=== PATIENT | female | born 1965 | race Caucasian/White ===

== ENCOUNTER 2017-03-11 17:30 | Emergency (ER) | payer OTHER ==
[~2017-03-11] VITALS: Ht 162.6 cm; Wt 102.1 kg
[~2017-03-11 17:30] MED LIST: ACETAMINOPHEN-1 EAC1 PO; DAY TIME LIQUI1 EAC1 PO; IBUPROFEN600 MG PO
[2017-03-11] MEDS ORDERED: CLINDAMYCIN HC300 MG PO (18:32)
== END 2017-03-11 18:51 | disposition home or self-care (01) ==
LOC: ED 17:30
DX: K04.7 Periapical abscess without sinus (principal); F17.200 Nicotine dependence, unspecified, uncomplicated; Z98.51 Tubal ligation status
CPT/HCPCS: 99282

== ENCOUNTER 2018-09-06 17:33 | Emergency (ER) | payer OTHER ==
[~2018-09-06] VITALS: Ht 162.6 cm; Wt 102.1 kg
[~2018-09-06 17:33] MED LIST changes: +CLINDAMYCIN HC300 MG PO
[2018-09-06] MEDS ORDERED: ONDANSETRON ODT8 MG PO (18:53)
== END 2018-09-06 19:03 | disposition home or self-care (01) ==
LOC: ED 17:33
DX: J10.1 Influenza due to other identified influenza virus with other respiratory manifestations (principal); F17.200 Nicotine dependence, unspecified, uncomplicated
CPT/HCPCS: 81001; 87077; 87088; 87186; 87502; 99283

== ENCOUNTER 2020-02-13 21:55 | Emergency (ER) | payer OTHER ==
[~2020-02-13] VITALS: Ht 162.6 cm; Wt 99.8 kg
[~2020-02-13 21:55] MED LIST changes: +ONDANSETRON ODT8 MG PO
[2020-02-13] MEDS ORDERED: ULTRAM50 MG PO (23:00)
== END 2020-02-13 23:26 | disposition home or self-care (01) ==
LOC: ED 21:55
DX: S46.911A Strain of unspecified muscle, fascia and tendon at shoulder and upper arm level, right arm, initial encounter (principal); F17.200 Nicotine dependence, unspecified, uncomplicated; Z88.5 Allergy status to narcotic agent; W19.XXXA Unspecified fall, initial encounter
CPT/HCPCS: 73030; 99283-25

== ENCOUNTER 2021-02-25 14:08 | Emergency (ER) | payer OTHER ==
[~2021-02-25] VITALS: Ht 162.6 cm; Wt 94.2 kg
[~2021-02-25 14:08] MED LIST changes: +ULTRAM50 MG PO
[2021-02-25] MEDS ORDERED: DOXYCYCLINE HY100 MG PO (15:37)
[2021-02-25] MEDS ORDERED: FLAGYL500 MG PO (15:50)
== END 2021-02-25 16:15 | disposition home or self-care (01) ==
LOC: ED 14:08
DX: A64 Unspecified sexually transmitted disease (principal); F17.200 Nicotine dependence, unspecified, uncomplicated; Z88.5 Allergy status to narcotic agent; Z88.8 Allergy status to other drugs, medicaments and biological substances
CPT/HCPCS: 81001; 96372; 99283; J0696

== ENCOUNTER 2023-03-08 15:29 | Emergency (ER) | payer OTHER ==
[~2023-03-08] VITALS: Ht 162.6 cm; Wt 95.2 kg
[~2023-03-08 15:29] MED LIST changes: +DOXYCYCLINE HY100 MG PO; +FLAGYL500 MG PO
[2023-03-08] MEDS ORDERED: IMITREX50 MG PO (16:53)
[2023-03-08 17:32] VITALS: BP 133/84
== END 2023-03-08 17:35 | disposition home or self-care (01) ==
LOC: ED 15:29
DX: G43.909 Migraine, unspecified, not intractable, without status migrainosus (principal); F17.200 Nicotine dependence, unspecified, uncomplicated; Z88.5 Allergy status to narcotic agent
CPT/HCPCS: 96374; 96375; 99283 25; J1200; J1885; J2765; J3030; J7121

== ENCOUNTER 2023-10-16 08:52 | Emergency (ER) | payer OTHER ==
[~2023-10-16] VITALS: Ht 162.6 cm; Wt 88.1 kg
[~2023-10-16 08:52] MED LIST changes: +IMITREX50 MG PO
[2023-10-16] MEDS ORDERED: IBUPROFEN 600 MG TAB PO ONE (09:15)
[2023-10-16] MEDS ORDERED: METOCLOPRAMIDE HCL 10 MG TAB PO ONE (09:15)
[2023-10-16] MEDS ORDERED: ACETAMINOPHEN 500 MG TAB PO ONE (09:15)
[2023-10-16 09:55] LABS: INFLUENZA B NAA NEGATIVE (NEGATIVE); RESPIRATORY SYNCYTIAL VIR NAA NEGATIVE (NEGATIVE)
[2023-10-16] MEDS ORDERED: REGLAN10 MG PO (10:36)
[2023-10-16 10:48] VITALS: BP 139/78
== END 2023-10-16 10:49 | disposition home or self-care (01) ==
LOC: ED 08:52
PROVIDERS: Emergency Medicine
DX: U07.1 COVID-19 (principal); F17.200 Nicotine dependence, unspecified, uncomplicated; Z88.5 Allergy status to narcotic agent
CPT/HCPCS: 87502; A9270; U0002

== ENCOUNTER 2025-08-05 14:22 | Emergency (ER) | payer OTHER ==
[~2025-08-05] VITALS: Ht 162.6 cm; Wt 93.0 kg
[~2025-08-05 14:22] MED LIST changes: +REGLAN10 MG PO
--- OUTSIDE RECORDS SUMMARY | 2025-08-05 14:29 | XMS ---
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 PHONE: [phone] Josse has no Care Guidelines for this patient. E.D. VISIT COUNT (12 MO.) 2 ODETTE Santana TOTAL 2 NOTE: Visits indicate total known visits. ED/UCC VISIT TRACKING (12 MO.) 08/05/2025 14:22 ODETTE Escobar [place] TYPE: Emergency COMPLAINT: - EYE INJURY 05/21/2025 16:30 ODETTE Escobar [place] TYPE: Emergency COMPLAINT: - HEADACHE INPATIENT VISIT TRACKING (12 MO.) No inpatient visits to display in this time frame [email or web address]
[2025-08-05] MEDS ORDERED: TETRACAINE HCL 0.5% 4 ML BTL OU PRN (14:45)
[2025-08-05] MEDS ORDERED: ERYTHROMYCIN 3.5 GM HOME.PACK OP ONE (15:45)
== END 2025-08-05 15:46 | disposition home or self-care (01) ==
LOC: ED 14:22
DX: S05.02XA Injury of conjunctiva and corneal abrasion without foreign body, left eye, initial encounter (principal); Y93.H2 Activity, gardening and landscaping
CPT/HCPCS: 99283